=== PATIENT | female | born 1965 | race Caucasian/White ===

== ENCOUNTER 2017-02-27 11:30 | Day surgery (SDC) | payer OTHER ==
[~2017-02-27] VITALS: Ht 162.6 cm; Wt 59.3 kg
[2017-02-27 12:00] VITALS: Ht 162.6 cm; Wt 59.3 kg
[2017-02-27 12:22] VITALS: BP 108/61; PULSE 52; RESP 20
[2017-02-27 13:49] VITALS: BP 87/50; PULSE 59; RESP 45
[2017-02-27] MEDS ORDERED: FENTAnyl 50 MCG/ML VIAL ONE (13:51)
[2017-02-27] MEDS ORDERED: MIDAZOLAM 1 MG/ML 2 ML INJ ONE (13:52)
--- NOTE | 2017-02-27 13:53 | OPPN ---
Date/Time of Note Date/Time of Note DATE: 02/27/17 TIME: 13:50 Operative Report Preoperative Diagnosis Screening colonoscopy Postoperative Diagnosis Internal hemorrhoids No colon neoplasm is identified Operation/Procedure Performed Colonoscopy Surgeon see signature line contract assistant None Anesthesia: moderate sedation Estimated blood loss: none Transfusion Required none Specimen None Grafts/Implants none Complications none SHIRAZ PALENCIA MD Feb 27, 2017 13:53
--- NOTE | 2017-02-27 14:19 | GILP ---
DATE OF PROCEDURE: 02/27/2017 NAME OF THE PROCEDURE: Colonoscopy. SURGEON: Shiraz Leon MD. PREOPERATIVE DIAGNOSIS: Screening colonoscopy. POSTOPERATIVE DIAGNOSES: 1. Colonoscopy all the way to the cecum. 2. Internal hemorrhoids. 3. No colon neoplasm was identified. INDICATION FOR THE PROCEDURE: Ms. Magnolia Garcia is a 51-year-old female patient who was schedu led for screening colonoscopy. The procedure and possible complications are well explained to the patient. The patient understood and consented to the procedure. DESCRIPTION OF PROCEDURE: Under the influence of fentanyl and Versed, the colonoscope was carefully introduced in the rectum and under direct vision, it was advanced all the way to the cecum. FINDINGS: The patient had internal hemorrhoids. No colon neoplasm was identified. She tolerated the procedure very well. There was no complication from the procedure. At the end of the procedure, she was awake with stable vital signs and she was discharged home to the care of her family. IMPRESSION: Please see postoperative diagnoses. PLAN: 1. Anusol-HC 2.5% cream at bedtime p.r.n. 2. Next screening colonoscopy in 10 years. Dictated By: SHIRAZ HERNANDEZ/CHAPO Conf#: [id number] DID#: [id number]
[2017-02-27 14:31] VITALS: BP 98/58; PULSE 52; RESP 18
== END 2017-02-27 16:59 | disposition home or self-care (01) ==
LOC: GIL 11:30
PROVIDERS: ATTEND Internal Medicine Gastroenterology
DX: Z12.11 Encounter for screening for malignant neoplasm of colon (principal); K64.8 Other hemorrhoids
CPT/HCPCS: 45378; J2250; J3010